=== PATIENT | female | born 1990 | race Caucasian/White ===

== ENCOUNTER 2017-06-17 21:05 | Emergency (ER) | payer MEDICAID, OTHER ==
[~2017-06-17] VITALS: Ht 162.6 cm; Wt 84.0 kg
[2017-06-17 21:42] VITALS: BP 128/71
== END 2017-06-18 00:23 | disposition left against medical advice (07) ==
LOC: ER 21:05
DX: O26.892 Other specified pregnancy related conditions, second trimester (principal); H92.01 Otalgia, right ear; Z3A.17 17 weeks gestation of pregnancy
CPT/HCPCS: 99281

== ENCOUNTER 2017-07-02 09:36 | Emergency (ER) | payer MEDICAID ==
[~2017-07-02] VITALS: Ht 162.6 cm; Wt 88.0 kg
[2017-07-02 10:15] LABS: CLARITY URINE CLEAR (CLEAR); COLOR URINE YELLOW (YELLOW); KETONES URINE NEGATIVE (NEGATIVE); LEUKOCYTE ESTERASE URINE NEGATIVE (NEGATIVE); NITRITE URINE NEGATIVE (NEGATIVE); OCCULT BLOOD URINE NEGATIVE (NEGATIVE); PROTEIN URINE NEGATIVE (NEGATIVE); SPECIFIC GRAVITY URINE 1.015 (1.005-1.030); UROBILINOGEN URINE 0.2 E.U./dL (0.2-1.0)
[2017-07-02 10:39] LABS: BASOPHILS % 0.5 % (0.0-2.0); EOSINOPHILS % 1.3 % (0.0-5.0); HEMATOCRIT. 37.4 % (36.0-48.0); HEMOGLOBIN. 13.3 g/dL (12.0-16.0); MEAN CORPUSCULAR HEMOGLOBIN 31.3 pg (28.0-32.0); MEAN CORPUSCULAR VOLUME 88.2 fL (81.0-99.0); MEAN PLATELET VOLUME 8.7 fl (7.4-10.4); MONOCYTES % 6.2 % (2.0-8.0); PLATELET 250 x1000/uL (130-400); RED BLOOD CELL COUNT 4.24 mill/uL (4.2-5.4); RED CELL DISTRIBUTION WIDTH 14.4 % (11.6-14.6)
[2017-07-02 10:47] LABS: CHLORIDE 109 mEq/L (98-107)
[2017-07-02 11:13] LABS: B-HCG QUANTITATIVE 7029 mIU/mL (<3)
[2017-07-02 14:03] VITALS: BP 118/59
== END 2017-07-02 14:16 | disposition home or self-care (01) ==
LOC: ER 11:19
DX: O20.0 Threatened abortion (principal); Z3A.19 19 weeks gestation of pregnancy
CPT/HCPCS: 36415; 76805; 80053; 81003; 81025; 84702; 85025; 86850; 86900; 99285

== ENCOUNTER 2017-09-18 17:08 | Observation (INO) | payer MEDICAID ==
[~2017-09-18] VITALS: Ht 162.6 cm; Wt 95.3 kg
[2017-09-18 18:13] LABS: CLARITY URINE CLEAR (CLEAR); COLOR URINE YELLOW (YELLOW); KETONES URINE NEGATIVE (NEGATIVE); LEUKOCYTE ESTERASE URINE NEGATIVE (NEGATIVE); NITRITE URINE NEGATIVE (NEGATIVE); OCCULT BLOOD URINE NEGATIVE (NEGATIVE); PROTEIN URINE NEGATIVE (NEGATIVE); SPECIFIC GRAVITY URINE 1.016 (1.005-1.030); UROBILINOGEN URINE 0.2 E.U./dL (0.2-1.0)
[2017-09-18] MEDS ORDERED: PNV1TABL76 PO (18:44)
== END 2017-09-18 18:55 | disposition home or self-care (01) ==
LOC: L&D 17:08
PROVIDERS: ADMIT Obstetrics & Gynecology; ATTEND Obstetrics & Gynecology
DX: O26.893 Other specified pregnancy related conditions, third trimester (principal); N89.8 Other specified noninflammatory disorders of vagina; Z3A.30 30 weeks gestation of pregnancy; R35.0 Frequency of micturition
CPT/HCPCS: 76815; 76818; 81003; 99281; G0378

== ENCOUNTER 2020-10-22 15:44 | Emergency (ER) | payer MEDICAID, OTHER ==
[~2020-10-22] VITALS: Ht 162.6 cm; Wt 90.0 kg
[~2020-10-22 15:44] MED LIST: PNV1TABL76 PO
[2020-10-22] MEDS ORDERED: IBUPROFEN 600MG TABLET PO STA (16:40)
[2020-10-22] MEDS ORDERED: AMOX-424 PO (17:41)
[2020-10-22] MEDS ORDERED: IBUP-2029 PO (17:41)
[2020-10-22] MEDS ORDERED: OFLO5DRO4 EACH EAR (17:41)
[2020-10-22 18:07] VITALS: BP 147/82
== END 2020-10-22 18:08 | disposition home or self-care (01) ==
LOC: ER 16:38
DX: H60.92 Unspecified otitis externa, left ear (principal); H66.91 Otitis media, unspecified, right ear
CPT/HCPCS: 99283; Z7610

== ENCOUNTER 2021-08-30 05:17 | Inpatient (IN) | payer MEDICAID, OTHER ==
[~2021-08-30] VITALS: Ht 152.4 cm; Wt 78.0 kg
[~2021-08-30 05:17] MED LIST changes: +AMOX-424 PO; +IBUP-2029 PO; +OFLO5DRO4 EACH EAR
[2021-08-30] MEDS ORDERED: SODIUM CHLORIDE 0.9% 1,000 ML IV ONE (05:30)
[2021-08-30] MEDS ORDERED: ACETAMINOPHEN 325MG TABLET PO ONE (06:00)
[2021-08-30 06:15] LABS: HEMATOCRIT. 43.9 % (36.0-48.0); HEMOGLOBIN. 14.7 g/dL (12.0-16.0); MEAN CORPUSCULAR HEMOGLOBIN 29.4 pg (28.0-32.0); MEAN CORPUSCULAR VOLUME 88.1 fL (81.0-99.0); MEAN PLATELET VOLUME 9.3 fl (7.4-10.4); PLATELET 190 x1000/uL (130-400); RED BLOOD CELL COUNT 4.98 mill/uL (4.2-5.4); RED CELL DISTRIBUTION WIDTH 13.9 % (11.6-14.6)
[2021-08-30 06:23] LABS: CHLORIDE 106 mEq/L (98-107)
[2021-08-30 06:56] LABS: CLARITY URINE CLOUDY (CLEAR); COLOR URINE DARK YELLOW (YELLOW); KETONES URINE TRACE (NEGATIVE); LEUKOCYTE ESTERASE URINE 1+ (NEGATIVE); NITRITE URINE NEGATIVE (NEGATIVE); OCCULT BLOOD URINE 3+ (NEGATIVE); PROTEIN URINE 2+ (NEGATIVE); UROBILINOGEN URINE 0.2 E.U./dL (0.2-1.0)
[2021-08-30] MEDS ORDERED: CEFTRIAXONE 1 G PREMIX 50 ML IV ONE (08:00)
[2021-08-30] MEDS ORDERED: SODIUM CHLORIDE 0.9% 1000ML BAG (SEPSIS BOLUS) IV ONE (08:00)
[2021-08-30 10:27] LABS: PLATELET ESTIMATE NORMAL
[2021-08-30] MEDS ORDERED: CEFTRIAXONE 1 G PREMIX 50 ML IV SCH (12:45)
[2021-08-30] MEDS ORDERED: ACETAMINOPHEN 325MG TABLET PO PRN (12:45)
[2021-08-30] MEDS ORDERED: POTASSIUM CHLORIDE 20MEQ TABLET SR PO NR (12:45)
[2021-08-30] MEDS ORDERED: ONDANSETRON HCL 4MG/2ML INJ IV PRN (12:45)
[2021-08-30 16:00] VITALS: BP 107/50
[2021-08-30 20:00] VITALS: BP 114/60
[2021-08-31] VITALS: BP 122/64
[2021-08-31 04:00] VITALS: BP 112/62
[2021-08-31 07:25] LABS: BASOPHILS % 0.5 % (0.0-2.0); HEMATOCRIT. 38.8 % (36.0-48.0); HEMOGLOBIN. 13.2 g/dL (12.0-16.0); LYMPHOCYTES % 10.9 % (20.0-50.0); MEAN CORPUSCULAR HEMOGLOBIN 29.7 pg (28.0-32.0); MEAN CORPUSCULAR VOLUME 87.2 fL (81.0-99.0); MEAN PLATELET VOLUME 9.7 fl (7.4-10.4); NEUTROPHILS % 81.6 % (40.0-76.0); PLATELET 175 x1000/uL (130-400); RED BLOOD CELL COUNT 4.46 mill/uL (4.2-5.4)
[2021-08-31 07:45] LABS: CHLORIDE 105 mEq/L (98-107)
[2021-08-31 08:04] VITALS: BP 111/71
[2021-08-31] MEDS ORDERED: CEFTRIAXONE 1,000 MG in DEXTROSE 5% WATER 50 ML IV SCH (09:00)
[2021-08-31] MEDS ORDERED: POTASSIUM CHLORIDE 20MEQ TABLET SR PO NR ×2 (10:45→13:15)
[2021-08-31 12:30] VITALS: BP 116/69
[2021-08-31 12:57] LABS: *AMPHETAMINES SCREEN URINE NEGATIVE (NEGATIVE); *BARBITURATES SCREEN URINE NEGATIVE (NEGATIVE); *BENZODIAZEPINES SCREEN URINE NEGATIVE (NEGATIVE); *COCAINE SCREEN URINE NEGATIVE (NEGATIVE); CANNABINOID URINE SCREEN NEGATIVE (NEGATIVE); METHADONE URINE SCREEN NEGATIVE (NEGATIVE); OPIATES URINE SCREEN NEGATIVE (NEGATIVE); PHENCYCLIDINE URINE SCREEN NEGATIVE (NEGATIVE)
[2021-08-31 14:43] VITALS: BP 116/69
[2021-08-31 16:30] VITALS: BP 114/76
== END 2021-08-31 16:35 | disposition home or self-care (01) | DRG 720 ==
LOC: ER 05:17 → 6WST 09:50 → EDBEDREQSVC 09:54 → EDBEDREQTM 09:55 → EDBEDREQ 09:55 → ENRESERV 13:53
PROVIDERS: ADMIT Internal Medicine; ATTEND Internal Medicine
DX: A41.9 Sepsis, unspecified organism (principal); E87.6 Hypokalemia; N39.0 Urinary tract infection, site not specified; R74.01 Elevation of levels of liver transaminase levels; Z20.822 Contact with and (suspected) exposure to COVID-19; Z79.2 Long term (current) use of antibiotics; Z79.899 Other long term (current) drug therapy
CPT/HCPCS: 36415; 71045; 80048; 80053; 80305; 81003; 83605; 84145; 85025; 87426; 87804; 93005; 99291; J0696; J7030; J7060

== ENCOUNTER 2022-10-14 12:37 | Emergency (ER) | payer MEDICAID, OTHER ==
[2022-10-14 12:42] VITALS: PULSE 82; RESP 18
== END 2022-10-14 15:26 | disposition left against medical advice (07) ==
LOC: ER 14:29
DX: Z53.21 Procedure and treatment not carried out due to patient leaving prior to being seen by health care provider (principal)
CPT/HCPCS: 99281

== ENCOUNTER 2023-09-02 05:36 | Emergency (ER) | payer SELFPAY ==
[~2023-09-02] VITALS: Ht 162.6 cm; Wt 91.0 kg
[2023-09-02 05:46] VITALS: O2SAT 98
[2023-09-02] MEDS: IBUPROFEN 400MG TABLET PO ONE (06:15)
[2023-09-02 06:19] LABS: BASOPHILS % 0.9 % (0.0-2.0); EOSINOPHILS % 2.1 % (0.0-5.0); HEMATOCRIT. 40.1 % (36.0-48.0); HEMOGLOBIN. 13.5 g/dL (12.0-16.0); LYMPHOCYTES % 23.5 % (20.0-50.0); MEAN CORPUSCULAR HEMOGLOBIN 30.2 pg (28.0-32.0); MEAN CORPUSCULAR HGB CONC 33.8 g/dL (31.0-37.0); MEAN CORPUSCULAR VOLUME 89.4 fL (81.0-99.0); MEAN PLATELET VOLUME 8.8 fl (7.4-10.4); MONOCYTES % 8.8 % (2.0-8.0); NEUTROPHILS % 64.7 % (40.0-76.0); PLATELET 289 x1000/uL (130-400); RED BLOOD CELL COUNT 4.48 mill/uL (4.2-5.4); RED CELL DISTRIBUTION WIDTH 13.4 % (11.6-14.6)
[2023-09-02 06:40] LABS: CHLORIDE 107 mEq/L (98-107); POTASSIUM 4.2 mEq/L (3.5-5.1); SODIUM 141 mEq/L (136-145)
[2023-09-02 06:41] LABS: CARBON DIOXIDE 27 mEq/L (21-32)
[2023-09-02 06:42] LABS: CALCIUM 9.5 mg/dL (8.7-10.4)
[2023-09-02 06:46] LABS: CREATININE 0.7 mg/dL (0.6-1.0); GLUCOSE 162 mg/dL (70-105); UREA NITROGEN BLOOD 10 mg/dL (9-23)
[2023-09-02] MEDS ORDERED: ACET-2708 PO (07:06)
[2023-09-02] MEDS ORDERED: SULF1TAB48 PO (07:06)
[2023-09-02] MEDS ORDERED: CEPH500C2 PO (07:06)
[2023-09-02 07:19] VITALS: BP 125/76; PULSE 76; RESP 18; TEMP 98.5
== END 2023-09-02 07:16 | disposition home or self-care (01) ==
LOC: ER 05:36
DX: L02.214 Cutaneous abscess of groin (principal)
CPT/HCPCS: 36415; 80048; 85025; 99284